=== PATIENT | male | born 2005 | race African-American/Black ===

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

== ENCOUNTER 2024-04-21 10:54 | Emergency (ER) | payer MEDICAID, OTHER | END 2024-04-21 11:50 | disposition home or self-care (01) | LOC: NAV ERS 10:54 | DX: M54.50 Low back pain, unspecified (principal); I10 Essential (primary) hypertension | CPT/HCPCS: 99283 ==

== ENCOUNTER 2024-07-08 09:00 | Emergency (ER) | payer OTHER | END 2024-07-08 10:35 | disposition home or self-care (01) | LOC: NAV ERS 09:00 | DX: B34.9 Viral infection, unspecified (principal); F17.290 Nicotine dependence, other tobacco product, uncomplicated | CPT/HCPCS: 87081; 87428; 87430; 99283 ==

== ENCOUNTER 2024-08-07 22:13 | Emergency (ER) | payer OTHER | END 2024-08-07 23:56 | disposition home or self-care (01) | LOC: NAV ERS 22:13 | DX: M25.531 Pain in right wrist (principal); F17.290 Nicotine dependence, other tobacco product, uncomplicated | CPT/HCPCS: 99283 ==